=== PATIENT | male | born 1985 | race Two or more races ===

== ENCOUNTER 2018-06-07 12:00 | Emergency (ER) | payer SELFPAY ==
[~2018-06-07] VITALS: Ht 188 cm; Wt 88.5 kg
[2018-06-07 12:23] VITALS: BP 122/75
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
--- NOTE | 2018-06-07 14:33 | NUR ---
DR ABDI AT BEDSIDE
[2018-06-07 15:07] VITALS: BP 118/72
--- NOTE | 2018-06-07 15:08 | NUR ---
Patient discharged with v/s stable. Written and verbal after care instructions given and explained. Patient alert, oriented and verbalized understanding of instructions. Ambulatory with steady gait. All questions addressed prior to discharge. ID band removed. Patient advised to follow up with PMD. Rx of NAPHCON A OPHTHALMIC DROPS, AND BLEPH-10 OPHTHALMIC OINTMENT given. Patient educated on indication of medication including possible reaction and side effects. Opportunity to ask questions provided and answered.
== END 2018-06-07 15:08 | disposition home or self-care (01) ==
LOC: MED 12:00
DX: H02.846 Edema of left eye, unspecified eyelid (principal); H02.843 Edema of right eye, unspecified eyelid
CPT/HCPCS: 99283

== ENCOUNTER 2021-01-30 01:40 | Emergency (ER) | payer MEDICAID ==
[~2021-01-30] VITALS: Ht 188 cm; Wt 102.5 kg
[2021-01-30 01:48] VITALS: BP 138/87
--- NOTE | 2021-01-30 01:51 | NUR ---
PT TAKEN TO BED #12
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
--- NOTE | 2021-01-30 02:35 | NUR ---
ERMD AT BEDSIDE FOR MEDICAL EVALUATION.
[2021-01-30 03:20] VITALS: BP 132/78
--- NOTE | 2021-01-30 03:20 | NUR ---
Patient discharged with v/s stable. Written and verbal after care instructions given and explained. Patient verbalized understanding. Ambulatory with steady gait. All questions addressed prior to discharge. Advised to follow up with PMD.
== END 2021-01-30 03:20 | disposition home or self-care (01) ==
LOC: MED 01:40
DX: S01.112A Laceration without foreign body of left eyelid and periocular area, initial encounter (principal); W22.03XA Walked into furniture, initial encounter; Y93.89 Activity, other specified; Y92.89 Other specified places as the place of occurrence of the external cause; Y99.8 Other external cause status
CPT/HCPCS: 99282

== ENCOUNTER 2021-09-21 06:55 | Emergency (ER) | payer MEDICAID ==
[~2021-09-21] VITALS: Ht 188 cm; Wt 107.6 kg
[2021-09-21 06:59] VITALS: BP 154/62
--- NOTE | 2021-09-21 07:03 | NUR ---
ROXANA KWAW ASSESSING IN TRIAGE.
[2021-09-21] MEDS ORDERED: FEXO180T82 PO (07:08)
[2021-09-21] MEDS ORDERED: PRED20TA5 PO (07:08)
--- NOTE | 2021-09-21 07:10 | NUR ---
36 Y/O MALE BIB SELF C/O OF RASH ON HIS ELBOWS, SATTING AT 99% RA. DOES NOT RECALL WHAT HE ATE OR IF HE HAD ANY NEW DETERGENT NKA PMH: DENIES
[2021-09-21 07:21] VITALS: BP 128/79
--- NOTE | 2021-09-21 07:21 | NUR ---
Patient discharged with v/s stable. Written and verbal after care instructions given and explained. Patient alert, oriented and verbalized understanding of instructions. Ambulatory with steady gait. All questions addressed prior to discharge. ID band removed. Patient advised to follow up with PMD. Rx of GWEN, DELTASONE given. Patient educated on indication of medication including possible reaction and side effects. Opportunity to ask questions provided and answered.
== END 2021-09-21 07:21 | disposition home or self-care (01) ==
LOC: MED 06:55
DX: L50.9 Urticaria, unspecified (principal); Z79.899 Other long term (current) drug therapy
CPT/HCPCS: 99283

== ENCOUNTER 2021-12-30 10:22 | Emergency (ER) | payer MEDICAID ==
[~2021-12-30] VITALS: Ht 188 cm; Wt 102.1 kg
[~2021-12-30 10:22] MED LIST: FEXO180T82 PO; PRED20TA5 PO
[2021-12-30 10:52] VITALS: BP 148/91
[2021-12-30] MEDS ORDERED: BACI1PAC6 TP (11:23)
[2021-12-30] MEDS ORDERED: NAPR-1704 PO (11:23)
[2021-12-30] MEDS ORDERED: KETOROLAC 30 MG/ML VIAL IM ONE (11:25)
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
--- NOTE | 2021-12-30 11:43 | NUR ---
Patient discharged with v/s stable. Written and verbal after care instructions FOR SHOULDER PAIN AND ABRASION given and explained. Patient alert, oriented and verbalized understanding of instructions. Ambulatory with steady gait. All questions addressed prior to discharge. ID band removed. Patient advised to follow up with PMD. Rx of BACITRACIN OINT AND NAPROXEN given. Opportunity to ask questions provided and answered.
== END 2021-12-30 11:43 | disposition home or self-care (01) ==
LOC: MED 10:22
DX: S40.211A Abrasion of right shoulder, initial encounter (principal); X58.XXXA Exposure to other specified factors, initial encounter; Y93.89 Activity, other specified; Y92.89 Other specified places as the place of occurrence of the external cause; Y99.8 Other external cause status
CPT/HCPCS: 96372; 99283; J1885